=== PATIENT | female | born 1975 | race American Indian/Alaskan Native ===

== ENCOUNTER 2017-10-14 11:34 | Emergency (ER) | payer OTHER ==
[2017-10-14 12:42] LABS: Hematocrit 21.7 % (30.3-42.9); Mean Corpuscular HGB Conc 26 % (30-34); Mean Corpuscular Hemoglobin 14 pg (28-32); Mean Corpuscular Volume 52 fl (79-97); Platelet Count 288 K/mm3 (140-440); Red Blood Count 4.13 M/mm3 (3.65-5.03); Red Cell Distribution Width 22.6 % (13.2-15.2)
[2017-10-14 12:44] LABS: Hemoglobin 5.6 gm/dl (10.1-14.3)
[2017-10-14 12:47] LABS: INR 0.94 (0.87-1.13)
[2017-10-14] MEDS ORDERED: NACL 0.9% 500 ML 500 ML IV ONE (12:48)
--- NOTE | 2017-10-14 12:49 | Emergency Department Report ---
ED Medical Clearance HPI - General Chief complaint: Weakness Stated complaint: HEMOGLOBIN LOW Time Seen by Provider: 10/14/17 12:31 Source: patient, RN notes reviewed Mode of arrival: Ambulatory Limitations: No Limitations - History of Present Illness Initial comments: This is a 41-year-old female. The patient is known to this provider. Primary care physician is Dr. David Orr, seen in conjunction with the nurse practitioner. The patient is sent to the ER for evaluation of abnormal outpatient laboratory studies, including a low hemoglobin level. Patient reports shortness of breath, palpitations, fatigue, malaise, and pale skin. Symptoms are painless, but worse with physical exertion, decreased with rest. She reports heavy menstruation. She denies hematemesis and bright red blood per rectum as well as black tarry stool. Complaint: medical clearance request, other -: Gradual Reason for Medical Clearance: laboratory abnormality Place: home Alledged Intoxication: No Compliant with Home Medications: Yes Traumatic Symptoms: denies traumatic injury Associated Symptoms: palpitations, malaise, weakness. denies: shortness of breath, diaphoresis, confusion, cough, fever/chills, headaches, anorexia, nausea /vomiting, rash, seizure, syncope Allergies/Adverse reactions: Allergies Allergy/AdvReac Type Severity Reaction Status Date / Time No Known Allergies Allergy Unverified 10/14/17 11:46 ED Review of Systems ROS: Stated complaint: HEMOGLOBIN LOW Other details as noted in HPI Comment: All other systems reviewed and negative Constitutional: malaise. denies: fever Eyes: denies: vision change ENT: denies: epistaxis Respiratory: shortness of breath Cardiovascular: palpitations. denies: chest pain Gastrointestinal: denies: abdominal pain, hematemesis, melena, hematochezia Neurological: weakness ED Past Medical Hx - Past Medical History Previous Medical History?: Yes Additional medical history: Vaginal delivery x 3 - Surgical History Past Surgical History?: No - Social History Smoking Status: Never Smoker Substance Use Type: Alcohol ED Physical Exam - General Limitations: No Limitations General appearance: alert, anxious - Head Head exam: Present: atraumatic, normocephalic - Eye Eye exam: Present: normal appearance, EOMI, other (bilateral conjunctiva are pale). Absent: nystagmus - ENT ENT exam: Present: normal exam, normal orophraynx, mucous membranes moist, other (the tongue is noted to be pale) - Neck Neck exam: Present: normal inspection - Respiratory Respiratory exam: Present: normal lung sounds bilaterally. Absent: respiratory distress - Cardiovascular Cardiovascular Exam: Present: normal rhythm, tachycardia, normal heart sounds. Absent: systolic murmur, diastolic murmur, rubs, gallop - GI/Abdominal GI/Abdominal exam: Present: soft, normal bowel sounds. Absent: distended, tenderness, guarding, rebound, rigid, pulsatile mass - Rectal Rectal exam: Present: normal inspection, normal rectal tone, heme (-) stool ( chaperoned by nurse: MATTY TUTTLE) - Extremities Exam Extremities exam: Present: normal inspection, full ROM, normal capillary refill. Absent: pedal edema, joint swelling, calf tenderness - Back Exam Back exam: Present: normal inspection, full ROM. Absent: tenderness, CVA tenderness (R), paraspinal tenderness, vertebral tenderness - Neurological Exam Neurological exam: Present: alert, oriented X3, CN II-XII intact, normal gait, other (Extraocular movements intact. Tongue midline. No facial droop. Facial sensation intact to light touch in the V1, V2, V3 distribution bilaterally. 5 and 5 strength in 4 extremities.. Sensation is intact to light touch in 4 extremities.). Absent: motor sensory deficit - Psychiatric Psychiatric exam: Present: anxious - Skin Skin exam: Present: warm, dry, intact, normal color. Absent: rash ED Course Vital Signs 10/14/17 10/14/17 11:46 12:30 Temperature 98 F Pulse Rate 104 H 85 Respiratory 20 Rate Blood Pressure 155/79 O2 Sat by Pulse 98 Oximetry ED Medical Decision Making - Lab Data Result diagrams: 10/14/17 12:03 10/14/17 12:03 Vital Signs 10/14/17 10/14/17 11:46 12:30 Temperature 98 F Pulse Rate 104 H 85 Respiratory 20 Rate Blood Pressure 155/79 O2 Sat by Pulse 98 Oximetry Lab Results 10/14/17 10/14/17 10/14/17 Range/Units 12:03 12:03 12:03 WBC 6.8 (4.5-11.0) K/mm3 RBC 4.13 (3.65-5.03) M/mm3 Hgb 5.6 L* (10.1-14.3) gm/dl Hct 21.7 L (30.3-42.9) % MCV 52 L (79-97) fl MCH 14 L (28-32) pg MCHC 26 L (30-34) % RDW 22.6 H (13.2-15.2) % Plt Count 288 (140-440) K/mm3 Lymph % (Auto) [employer] [place] % (Auto) [employer] Eos % (Auto) [employer] Baso % (Auto) [employer] Lymph # [employer] [place] # [employer] Eos # [employer] Baso # [employer] Seg Neutrophils % [employer] Seg Neutrophils # [employer] PT 13.0 (12.2-14.9) Sec. INR 0.94 (0.87-1.13) APTT 25.0 (24.2-36.6) Sec. Sodium 140 (137-145) mmol/L Potassium 3.6 (3.6-5.0) mmol/L Chloride 104.8 (98-107) mmol/L Carbon Dioxide 22 (22-30) mmol/L Anion Gap 17 mmol/L BUN 5 L (7-17) mg/dL Creatinine 0.4 L (0.7-1.2) mg/dL Estimated GFR > 60 ml/min BUN/Creatinine Ratio 13 % Glucose 100 (65-100) mg/dL Calcium 8.7 (8.4-10.2) mg/dL Total Bilirubin 0.30 (0.1-1.2) mg/dL AST 18 (5-40) units/L ALT 12 (7-56) units/L Alkaline Phosphatase 104 (35-129) units/L Total Protein 7.7 (6.3-8.2) g/dL Albumin 4.1 (3.9-5) g/dL Albumin/Globulin Ratio 1.1 % Lipase 25 (13-60) units/L - EKG Data When compared to previous EKG there are: previous EKG unavailable 10/14/17 13:28 Normal sinus, 84 bpm, normal axis, normal intervals, motion artifact, not having chest pain, not a STEMI - Medical Decision Making Current diagnoses, including not limited to: Symptomatic anemi Assessment and plan: 41-year-old female with painless symptomatic anemia which is microcytic, reports that she is , hemodynamically stable with hemoglobin of 5.6, microcytosis, is agreeable to packed red blood cell transfusion. Case presented to Hospital physician, Dr. Bower, who accepted the patient to the medical service. ED Disposition Clinical Impression: Symptomatic anemia Disposition: DC-09 OP ADMIT IP TO THIS HOSP Is pt being admited?: Yes Condition: Good Referrals: SACHIN BLANDON NP-C [Primary Care Provider] - 3-5 Days
[2017-10-14 12:55] LABS: Alanine Aminotransferase 12 units/L (7-56); Albumin 4.1 g/dL (3.9-5); BUN/Creatinine Ratio 13; Blood Urea Nitrogen 5 mg/dL (7-17); Calcium 8.7 mg/dL (8.4-10.2); Hemolysis Index 4; Lipase 25 units/L (13-60)
--- NOTE | 2017-10-14 13:00 | History and Physical Report ---
History of Present Illness Chief complaint: I feel weak History of present illness: 41 YO Female with Anemia presents to ED for evaluation of weakness. Pt seen and evaluated in ED and found to have symptomatic anemia. Pt transfused with 2 units PRBC with improvement in symptoms. Pt medically optimized and back to usual state of health. Pt initiated on Iron therapy and bowel regimen at discharge. Pt discharged home and instructed to F/U pcp 1wk, and [employer] 1 wk. Past History Past Medical History: anemia Past Surgical History: total knee replacement Social history: single. denies: smoking, alcohol abuse, prescription drug abuse Family history: no significant family history Medications and Allergies Allergies Allergy/AdvReac Type Severity Reaction Status Date / Time No Known Allergies Allergy Unverified 10/14/17 11:46 Home Medications Medication Instructions Recorded Confirmed Last Taken Type Ciprofloxacin HCl [Ciprofloxacin 500 mg PO Q12H 10/14/17 10/14/17 Unknown History TAB] Ferrous Sulfate [Feosol 325 MG tab] 325 mg PO BID #60 tablet 10/14/17 Unknown Rx Griseofulvin Ultramicrosize 500 mg PO DAILY 10/14/17 10/14/17 Unknown History Sennosides/Docusate Sodium 1 each PO BID #60 tablet 10/14/17 Unknown Rx [Sennosides-Docusate Sodium Tab] Review of Systems Constitutional: weakness Ears, nose, mouth and throat: no ear pain, no ear discharge, no tinnitis, no decreased hearing, no nose pain Breasts: no change in shape, no swelling, no mass Cardiovascular: no chest pain, no orthopnea, no palpitations, no rapid/ irregular heart beat, no edema Respiratory: no cough, no cough with sputum, no excessive sputum, no hemoptysis , no shortness of breath Gastrointestinal: no nausea, no vomiting, no diarrhea, no constipation, no change in bowel habits Genitourinary Female: no pelvic pain, no flank pain, no menorrhagia, no dysuria , no urinary frequency, no urgency, no stress incontinence, no post void dribbling Menstruation: no premenarcheal, no post hysterectomy, no ammenorrhea, no ammenorrhea on BC, no period normal Rectal: no pain, no incontinence, no bleeding, no itching, no hemorrhoids, no discharge Musculoskeletal: no neck stiffness, no neck pain, no shooting arm pain, no arm numbness/tingling, no low back pain, no shooting leg pain, no leg numbness/ tingling Integumentary: no rash, no pruritis, no redness, no sores, no wounds, no jaundice, no boils Neurological: no paralysis, no weakness, no parathesias, no numbness, no tingling, no seizures, no syncope, no tremors Psychiatric: no anxiety, no memory loss, no change in sleep habits, no sleep disturbances, no insomnia, no hypersomnia, no change in appetite, no change in libido Endocrine: no cold intolerance, no heat intolerance, no polyphagia, no excessive thirst, no polydipsia, no polyuria, no nocturia, no increase in ring/ shoe/hat size, no proptosis, no deepening of the voice, no thyroid mass Hematologic/Lymphatic: no easy bruising, no easy bleeding, no lymphadenopathy, no lymphedema Allergic/Immunologic: no urticaria, no allergic rhinitis, no wheezing, no persistent infections, no anaphylaxis, no angioedema Exam - Constitutional Vitals: Temp Pulse Resp BP Pulse Ox 98 F 85 20 155/79 98 10/14/17 11:46 10/14/17 12:30 10/14/17 11:46 10/14/17 11:46 10/14/17 11:46 General appearance: Present: no acute distress, well-nourished - EENT Eyes: Present: PERRL (conjunctival pallor) ENT: hearing intact, clear oral mucosa - Neck Neck: Present: supple, normal ROM - Respiratory Respiratory effort: normal Respiratory: bilateral: CTA - Cardiovascular Heart Sounds: Present: S1 & S2. Absent: rub, click - Extremities Extremities: pulses symmetrical, No edema Peripheral Pulses: within normal limits - Abdominal General gastrointestinal: Present: soft, non-tender, non-distended, normal bowel sounds Female genitourinary: Present: normal - Integumentary Integumentary: Present: clear, warm, dry - Musculoskeletal Musculoskeletal: gait normal, strength equal bilaterally - Psychiatric Psychiatric: appropriate mood/affect, intact judgment & insight - Neurologic Neurologic: CNII-XII intact, moves all extremities Results - Labs CBC & Chem 7: 10/14/17 12:03 10/14/17 12:03 Labs: Abnormal lab results 10/14/17 10/14/17 Range/Units 12:03 12:03 Hgb 5.6 L* (10.1-14.3) gm/dl Hct 21.7 L (30.3-42.9) % MCV 52 L (79-97) fl MCH 14 L (28-32) pg MCHC 26 L (30-34) % RDW 22.6 H (13.2-15.2) % BUN 5 L (7-17) mg/dL Creatinine 0.4 L (0.7-1.2) mg/dL Assessment and Plan - Patient Problems (1) Symptomatic anemia Status: Acute Plan to address problem: PRBC Transfusion, Iron replacement therapy, bowel regimen
[2017-10-14 13:31] LABS: Bacteria,Urine 1+ /HPF (Negative); Bilirubin,Urine NEG (Negative); Blood,Urine NEG (Negative); Color,Urine Yellow (Yellow); Mucus,Urine FEW /HPF; Protein,Urine <15 mg/dL mg/dL (Negative); Urobilinogen,Urine < 2.0 mg/dL (<2.0)
[2017-10-14 13:34] LABS: HCG Qualitative,Urine Negative (Negative)
[2017-10-14 14:09] LABS: Anisocytosis 2+; Band Neutrophils # (Manual) 0.1 K/mm3; Basophils % (Manual) 0 % (0.0-1.8); Hypochromasia 3+; Myelocytes # (Manual) 0.1 K/mm3; Ovalocytes 1+; Poikilocytosis 2+; Tear Drop Cells 1+; Total Cells Counted 100
[2017-10-14 14:10] LABS: Platelet Estimate Consistent w Auto
[2017-10-14 16:35] VITALS: BP 133/72
== END 2017-10-14 16:34 | disposition admitted as inpatient to this hospital (09) ==
LOC: ED 11:34
DX: D64.9 Anemia, unspecified (principal)
CPT/HCPCS: 36415; 36430; 80053; 81001; 81025; 82271; 83690; 85007; 85025; 85610; 85730; 86850; 86900; 86901; 86920; 87086; 93005; 93010; 99283; J7040; P9016